=== PATIENT | male | born 1990 | race Caucasian/White ===

== ENCOUNTER 2018-03-14 07:45 | Emergency (ER) | payer BC ==
[~2018-03-14] VITALS: Ht 185.4 cm; Wt 72.7 kg
[~2018-03-14 07:45] MED LIST: NORCO 325 MG-51 TAB PO; NORCO 325 MG-7.1 TAB PO; ROXICODONE 55 MG/TAB PO; SEPTRA DS 8001 TAB PO
[2018-03-14 07:49] VITALS: BP 124/67; TEMP 98.1
[2018-03-14 08:25] LABS: BASO # 0.1 (0.0-0.2); BASO % 0.3 % (0.0-2.0); EOS # 0.1 (0.0-0.7); EOS % 0.5 % (0-4.0); GRAN % 80.2 % (42.2-75.2); HEMATOCRIT 43.7 % (42.0-52.0); HEMOGLOBIN 15.6 g/dl (13.5-18.0); LYMPH # 1.5 (1.2-3.4); MEAN CELL VOLUME 84 fl (80.0-100.0); MEAN CORPUSCULAR HEMOGLOBIN 30 pg (27.0-31.0); MEAN CORPUSCULAR HGB CONC 36 g/dl (33.0-37.0); MEAN PLATELET VOLUME 8.3 fl (7.4-10.4); MONO # 1.3 (0.1-0.6); MONO % 8.6 % (1.7-9.3); PLATELET COUNT 270 K/mm3 (130-400); RED BLOOD COUNT 5.21 M/mm3 (4.20-5.60); REDCELL DISTRIBUTION WIDTH-CV 11.9 % (11.5-14.5)
[2018-03-14 08:36] LABS: CREATININE, serum 0.92 mg/dL (0.66-1.25); POTASSIUM 4.4 mmol/L (3.4-5.0); TOTAL PROTEIN 8.8 gm/dL (6.4-8.2)
[2018-03-14] MEDS ORDERED: CEPHALEXIN500 M1 PO (09:01)
[2018-03-14] MEDS ORDERED: BACTRIM DS 8001 TAB PO (09:01)
[2018-03-14 09:25] VITALS: PULSE 105
== END 2018-03-14 09:27 | disposition home or self-care (01) ==
LOC: COL.ER 07:45
PROVIDERS: Physician Assistant Medical
DX: L03.115 Cellulitis of right lower limb (principal); Z88.0 Allergy status to penicillin; Z88.1 Allergy status to other antibiotic agents
CPT/HCPCS: J0696